=== PATIENT | female | born 1945 | race Caucasian/White ===

== ENCOUNTER 2019-09-23 17:22 | Inpatient (IN) ==
[2019-09-23] MEDS ORDERED: NS 500 ML IV ONE ×2 (18:10→20:51)
[2019-09-23] MEDS ORDERED: ASPIRIN PO ONE (18:19)
[2019-09-23] MEDS ORDERED: NS 1,000 ML IV ONE ×2 (18:19→20:39)
--- NOTE | 2019-09-23 18:21 | Diag Imaging Result Doc PS360 ---
EXAM: CT HEAD W/O CONTRAST INDICATION: stroke like sx TECHNIQUE: This exam was performed using automated exposure control, adjustment of mA or kV according to patient size, and/or use of iterative reconstruction technique. COMPARISON: None. FINDINGS: There is right frontal lobe encephalomalacia indicating an old infarct. There is mild brain atrophy. There is no definite acute infarct given the limited sensitivity of CT versus MRI. There is no discrete intracranial mass, mass effect, or intracranial hemorrhage. The surrounding soft tissues and bony structures are essentially unremarkable. IMPRESSION: Chronic appearing changes as described. No definite acute intracranial pathology by CT. Electronically signed by Stephan Carias 09/23/2019 6:18 PM
--- NOTE | 2019-09-23 18:50 | EKG Report ---
Test Performed on : 09/23/2019 6:08:11 PM Test Reason : CVA Blood Pressure : / mmHG Vent. Rate : 141 BPM Atrial Rate : 144 BPM P-R Int : 000 ms QRS Dur : 094 ms QT Int : 264 ms P-R-T Axes : 000 061 201 degrees QTc Int : 404 ms Atrial fibrillation. with rapid ventricular response. Nonspecific ST and T wave abnormality Abnormal ECG No previous ECGs available Unconfirmed Result
--- NOTE | 2019-09-23 18:51 | Diag Imaging Result Doc PS360 ---
EXAM: CHEST-PORTABLE INDICATION: CVA TECHNIQUE: One view COMPARISON: None. FINDINGS: The lungs are grossly clear. There is no discrete pleural fluid collection or pneumothorax. The cardiomediastinal silhouette and central vasculature are grossly unremarkable. IMPRESSION: No evidence of acute pathology by plain radiograph. Electronically signed by Stephan Carias 09/23/2019 6:48 PM
[2019-09-23 18:56] LABS: BASO# 0.01 X1000 (0.0-0.2); BASO% 0.1 % (0.0-0.8); EOS# 0.16 X1000 (0.0-0.7); HEMATOCRIT 29.6 % (37.0-47.0); HEMOGLOBIN 8.1 g/dL (12.0-16.0); IMM GRAN# 0.02 X1000 (0.0-0.04); IMM GRAN% 0.2 % (0.0-0.5); LYMPH# 1.88 X1000 (1.2-3.4); LYMPH% 23.1 % (20.5-51.1); MCH 20.9 PG (27-31); MCHC 27.4 g/dL (33-37); MCV 76.5 FL (81-99); MONO# 0.39 X1000 (0.11-0.59); MONO% 4.8 % (1.7-9.3); MPV 10.5 FL (7.4-10.4); NEUT# 5.67 X1000 (1.4-6.5); NEUT% 69.8 % (42.2-75.2); PLT 370 X1000 (130-400); RBC 3.87 XMIL (4.2-5.4); RDW 17.7 % (11.5-14.5); WBC 8.13 X1000 (4.8-10.8)
--- NOTE | 2019-09-23 18:58 | PROVIDER DOCUMENTATION ---
This chart was entered by Waldo Sales Scribe, acting as scribe for Merlin Calloway MD. HPI-Neurological Disorder - General Source: patient, family - History of Present Illness-Neuro Severity: reports: mild Onset/Duration: reports: 1-3 hours ago Timing: reports: still present Context: reports: impaired speech Any recent trauma/injury?: reports: none Character of Deficits: reports: impaired speech New weakness or altered sensation location:: reports: none Cognitive Baseline: alert, oriented x3 Gait Baseline: walks without assistance Associated Symptoms: reports: slurred speech Similar Symptoms Previously?: No Recently seen or treated by another doctor?: Yes <Merlin Calloway - Last Filed: 09/23/19 18:55> <Miladys Carrasco - Last Filed: 09/23/19 20:23> - General Chief Complaint: Stroke-Like Symptoms Stated Complaint: CONFUSION Time Seen by Provider: 09/23/19 18:08 Allergies/Adverse Reactions: Patient Allergies Allergy/AdvReac Type Severity Reaction Status Date / Time No Known Allergies Allergy Verified 09/23/19 19:16 Home Medications: Home Medication List Medication Instructions Recorded Confirmed Last Taken Type Carvedilol [Coreg] 6.25 mg PO BID 09/23/19 09/23/19 Unknown History Cholecalciferol (Vit D3) [Vitamin 5,000 unit PO DAILY 09/23/19 09/23/19 Unknown History D3] Clopidogrel [Plavix] 75 mg PO DAILY 09/23/19 09/23/19 Unknown History LISINOpril [Prinivil] 5 mg PO DAILY 09/23/19 09/23/19 Unknown History Omeprazole 20 mg PO DAILY 09/23/19 09/23/19 Unknown History Oxybutynin [Ditropan] 5 mg PO BID 09/23/19 09/23/19 Unknown History Paroxetine [Paxil] 20 mg PO DAILY 09/23/19 09/23/19 Unknown History - History of Present Illness-Neuro Nature of Presenting Problem: Pt is a 74 yof who presents to the ED with stroke-like symptoms. Pt reports she saw her PCP this afternoon and states she began noticing she was having difficulty speaking after her appointment. Pt reports she first noticed her d ifficulty speaking at approximately 1500. Pt's son reports the pt called him at approximately 1600 and states the pt was having difficulty speaking on the phone. Pt reports a hx of a stroke in 2000. Pt reports a hx of Atrial fibrillation and HTN. (Merlin Calloway) Review of Systems - Adult - REVIEW OF SYSTEMS - ADULT Constitutional: reports: see HPI Eyes: reports: no symptoms reported Ears, Nose, Mouth & Throat: reports: no symptoms reported Cardiovascular: reports: see HPI Respiratory: reports: no symptoms reported Gastrointestinal: reports: no symptoms reported Genitourinary: reports: no symptoms reported Musculoskeletal: reports: no symptoms reported Integumentary: reports: no symptoms reported Neurological: reports: see HPI, slurred speech Psychiatric: reports: no symptoms reported Endocrine: reports: no symptoms reported Hematologic/Lymphatic: reports: no symptoms reported Allergic/Immunologic: reports: no symptoms reported All Other Systems: Reviewed and Negative <Merlin Calloway - Last Filed: 09/23/19 18:55> Past History - Adult - PAST MEDICAL HISTORY-ADULT Review of Records: reports: Old Records Reviewed, Nursing Assessment Review, Medications Reviewed, Social history reviewed & non-contributory. Major Childhood Illnesses: reports: denies history Cardiovascular: reports: denies history Respiratory: reports: denies history Gastrointestinal: reports: denies history Obstetrical/Gynecological: reports: denies history Genitourinary: reports: denies history Musculoskeletal: reports: denies history Neurological: reports: CVA Endocrine/Immune: reports: denies history Other Conditions: reports: denies history - PRIOR SURGERIES/PROCEDURES Surgical/Procedure History: reports: BTL - IMMUNIZATION STATUS Childhood Immunizations: See Nurse Assessment Flu Vaccine: See Nurse Assessment - FAMILY HISTORY Family History: reviewed, not pertinent <Merlin Calloway - Last Filed: 09/23/19 18:55> Physical Exam- Neurological - Physical Exam-Neuro Initial Vital Signs Reviewed: Yes General Appearance: alert, mild distress Eye Exam: bilateral eye: normal inspection, PERRL HENMT: normocephalic/atraumatic, moist mucous membranes Head Injury: no evidence of injury Neck: non-tender, full range of motion Respiratory: chest non-tender, lungs clear, normal breath sounds, no pleuratic chest pain, no respiratory distress Cardiovascular: tachycardia, irregularly irregular Abdominal Exam: non tender, soft Extremity: normal range of motion, non-tender major gifts director Exam: normal hearing, PERRL, abnormal speech Coordination/Gait: normal finger to nose Motor/Sensory: no motor deficit, no sensory deficit Neurologic: grossly normal, no motor/sensory deficits Integumentary: normal color, warm/dry Psych/Mental Status: normal mood/affect, normal thought content, normal thought process, oriented x 3 <Merlin Calloway - Last Filed: 09/23/19 18:55> Progress - PLAN OF CARE/RESULTS Result Diagrams: 09/23/19 18:20 - REASSESSMENT Reassessment #1 Time Reassessed: 18:55 Status: improving (A FIB RATE DOWN TO 121/MIN, FLUIDS GETTING STARTED. ct BRAIN W/O ACUTE CHANGES, OLD LARGE RIGHT TEMPORAL-CEREBRAL DEFECT, NO BLEED. WORD SELECTION MAYBE SL BETTER, NO SLURRED WORDS.) - EKG 1 Time of EKG reading by physician:: 18:10 EKG Read and Signed by:: Merlin Calloway EKG Interpretation (*Must complete 3 of following elements*): Abnormal (Atrial fibrillation with rapid ventricular repsonse; Nonspecific ST and T wave abnorma lity) Rate: 141 Rhythm: Atrial fibrillation with rapid ventricular repsonse [place]: normal QRS: normal MT Interval: normal ST Wave: non-specific ST changes - CT/MRI 1 CT Study: Head Impression: See EMR Report ( EXAM: CT HEAD W/O CONTRAST INDICATION: stroke like sx TECHNIQUE: This exam was performed using automated exposure control, adjustment of mA or kV according to patient size, and/or use of iterative reconstruction technique. COMPARISON: None. FINDINGS: There is right frontal lobe encephalomalacia indicating an old infarct. There is mild brain atrophy. There is no definite acute infarct given the limited sensitivity of CT versus MRI. There is no discrete intracranial mass, mass effect, or intracranial hemorrhage. The surrounding soft tissues and bony structures are essentially unremarkable. IMPRESSION: Chronic appearing changes as described. No definite acute intracranial pathology by CT. Electronically signed by Stephan Carias 09/23/2019 6:18 PM 09/23/191817 Interpreting Physician: Stephan Carias MD Dictated Date/Time: 09/23/191816 cc: Merlin Calloway MD; Gallo Stauffer MD) - CONSULTS/PCP/HOSPITALIST Notification #1 *Consult/PCP/Hospitalist*: Dr. Stauffer - PCP Time Discussed: 18:25 Reason/Comments: Made aware of pt and states the pt needs anticoagulation. Consult Disposition: other - CHANGE OF SHIFT REPORT (ED Provider) 1 Report Given and Care Transferred to:: DR HALL Time of Transfer: 19:00 <Merlin Calloway - Last Filed: 09/23/19 18:55> - PLAN OF CARE/RESULTS Result Diagrams: 09/23/19 18:20 09/23/19 18:20 - CONSULTS/PCP/HOSPITALIST Notification #2 Consult: Florencio Moreno NP for hospitalist Time Discussed: 20:16 Consult Disposition: Admit, other (accepted for admission to Dr Brown) <Miladys Carrasco - Last Filed: 09/23/19 20:23> - PLAN OF CARE/RESULTS Progress/Plan/Lab Results: Vital Signs - 8 hr 09/23/19 17:50 Temperature 98.9 F Pulse Rate 138 H Respiratory Rate 17 Blood Pressure 110/69 O2 Sat by Pulse Oximetry 97 Laboratory Results - last 24 hr 09/23/19 09/23/19 09/23/19 18:20 18:20 18:20 WBC 8.13 RBC 3.87 L Hgb 8.1 L Hct 29.6 L MCV 76.5 L MCH 20.9 L MCHC 27.4 L RDW Std Deviation 17.7 H Plt Count 370 MPV 10.5 H Immature Gran % (Auto) 0.2 Neut % (Auto) 69.8 Lymph % (Auto) 23.1 [place] % (Auto) 4.8 Eos % (Auto) 2.0 Baso % (Auto) 0.1 Immature Gran # (Auto) 0.02 Neut # (Auto) 5.67 Lymph # (Auto) 1.88 [place] # (Auto) 0.39 Eos # (Auto) 0.16 Baso # (Auto) 0.01 PT 14.2 INR 1.09 PTT (Actin FS) 26.7 Sodium 144 Potassium 3.6 Chloride 101 Carbon Dioxide 30 Anion Gap 13 BUN 16 Creatinine 1.0 H Estimated GFR/1.73 m2 54 BUN/Creatinine Ratio 16 Glucose 147 H Calculated Osmolality 291 Calcium 9.1 Magnesium 1.8 Iron 17 L Total Bilirubin 0.53 AST 14 ALT 11 Alkaline Phosphatase 106 H Troponin T Total Protein 6.6 Albumin 4.0 Globulin 2.6 Albumin/Globulin Ratio 1.5 Plasma Lactate 09/23/19 09/23/19 18:20 19:00 WBC RBC Hgb Hct MCV MCH MCHC RDW Std Deviation Plt Count MPV Immature Gran % (Auto) Neut % (Auto) Lymph % (Auto) [place] % (Auto) Eos % (Auto) Baso % (Auto) Immature Gran # (Auto) Neut # (Auto) Lymph # (Auto) [place] # (Auto) Eos # (Auto) Baso # (Auto) PT INR PTT (Actin FS) Sodium Potassium Chloride Carbon Dioxide Anion Gap BUN Creatinine Estimated GFR/1.73 m2 BUN/Creatinine Ratio Glucose Calculated Osmolality Calcium Magnesium Iron Total Bilirubin AST ALT Alkaline Phosphatase Troponin T 0.068 Total Protein Albumin Globulin Albumin/Globulin Ratio Plasma Lactate 1.6 Orders Category Date Time Status Cardiac Monitoring DIRECTED Care 09/23/19 18:10 Active Saline Loc NOW Care 09/23/19 18:10 Active CHEST-PORTABLE [RAD] Stat Exams 09/23/19 18:[address] HEAD W/O CONTRAST [CT] Stat Exams 09/23/19 17:33 Completed CBC WITH ELECTRONIC DIFF [HEME] Stat Lab 09/23/19 18:20 Completed COMPREHENSIVE METABOLIC PANEL [CHEM] Stat Lab 09/23/19 18:20 Completed LACTATE, PLASMA [CHEM] Stat Lab 09/23/19 19:00 Completed MAGNESIUM [CHEM] Stat Lab 09/23/19 18:20 Completed PROTIME WITH INR [COAG] Stat Lab 09/23/19 18:20 Completed PTT [COAG] Stat Lab 09/23/19 18:20 Completed TOTAL IRON [CHEM] Stat Lab 09/23/19 18:20 Completed TROPONIN T Stat Lab 09/23/19 18:20 Completed URINALYSIS W/POSS RFLX CULT [URINALYSIS] Stat Lab 09/23/19 18:12 Uncollected 0.9% Sodium Chloride Inj [Ns] 1,000 ml Med 09/23/19 18:19 Discontinued IV 999 mls/hr 0.9% Sodium Chloride Inj [Ns] 500 ml Med 09/23/19 18:10 Discontinued IV 999 mls/hr Aspirin Med 09/23/19 18:19 Discontinued 325 mg PO NOW ONE Carvedilol [Coreg] Med 09/23/19 21:00 Active 6.25 mg PO BID Cholecalciferol (Vit D3) [Vitamin D] Med 09/24/19 09:00 Active 5,000 unit PO DAILY Clopidogrel [Plavix] Med 09/24/19 09:00 Active 75 mg PO DAILY LISINOpril [Prinivil] Med 09/24/19 09:00 Active 5 mg PO DAILY Omeprazole [Prilosec] Med 09/24/19 09:00 Active 20 mg PO DAILY Oxybutynin [Ditropan] Med 09/23/19 21:00 Active 5 mg PO BID Paroxetine [Paxil] Med 09/24/19 09:00 Active 20 mg PO DAILY EKG [EKG] Stat Ther 09/23/19 18:10 Draft Patient signed out to me pending labs. Will require admission for stroke workup for expressive aphasia. Spoke to Kennedi Moreno NP for hospitalist who accepted patient for admission. Further orders to be placed by their team. (Miladys Carrasco) Departure - Departure Date of Disposition Decision: 09/23/19 Certified Medical Emergency: Emergent - Critical Care Note This patient required my direct & personal management of CC.: No <Merlin Calloway - Last Filed: 09/23/19 18:55> - Departure Time of Disposition Decision: 20:16 Certified Medical Emergency: Emergent - Critical Care Note This patient required my direct & personal management of CC.: No <Miladys Carrasco - Last Filed: 09/23/19 20:23> - Departure DIAGNOSIS: Expressive aphasia, Stroke-like symptom Disposition: ADMITTED INPATIENT 09 Condition: Stable Additional Instructions: ED Follow Up Instructions: You have been treated by a care provider in the Emergency Department. These instructions are being provided to you so you can have an understanding of how to care for yourself upon discharge. Upon discharge from the Emergency Department, you are responsible for making arrangements for follow-up care by a physician of your choice. Take all prescribed medications as directed. Return to the Emergency Department immediately for any new or worsening symptoms. You may call the Physician Referral phone number at [phone] to obtain a list of Physicians who are taking new patients. Referrals and Follow-Ups: Gallo Stauffer MD [Primary Care Provider] - Attestation - Physician/ CELIA Attestation Patient care was provided by Advanced Practice Provider:: No The physician spent face to face time with patient:: Yes Advanced Practice Provider documentation review:: Supervising physician onsite and consulted in the evaluation and care of this patient. The physician did have a face to face encounter with the patient. <Merlin Calloway. - Last Filed: 09/23/19 18:55> This chart was documented by the indicated scribe, (Waldo Sales, Scribe) and accurately reflects the services I performed and decisions made by me, Merlin Calloway MD, as attested by the provider's signature.
[2019-09-23 19:01] LABS: INR 1.09; PROTIME 14.2 Seconds (11.0-16.0)
[2019-09-23 19:02] LABS: PTT 26.7 Seconds (22.3-41.8)
[2019-09-23 19:06] LABS: ALB/GLOB RATIO 1.5; CALCIUM 9.1 mg/dL (8.8-10.2); MAGNESIUM 1.8 mg/dL (1.5-2.7); POTASSIUM 3.6 mmol/L (3.5-5.1); TOTAL BILIRUBIN 0.53 mg/dL (0.20-1.00); TOTAL PROTEIN 6.6 g/dL (6.3-8.3)
[2019-09-23] MEDS ORDERED: NICODERM PATCH TD ONE (20:40)
[2019-09-23] MEDS ORDERED: ATIVAN IV ONE (20:50)
[2019-09-23] MEDS ORDERED: LOPRESSOR IV ONE (20:51)
[2019-09-23] MEDS ORDERED: LANOXIN IV ONE (20:51)
[2019-09-23] MEDS ORDERED: COREG PO SCH (21:00)
[2019-09-23] MEDS ORDERED: KLOR-CON PO ONE (21:11)
[2019-09-23 21:14] LABS: URINE SOURCE CLEAN CATCH
[2019-09-23 21:19] LABS: BILIRUBIN URINE NEGATIVE (NEGATIVE); BLOOD URINE TRACE (NEGATIVE); COLOR YELLOW; GLUCOSE URINE NEGATIVE (NEGATIVE); KETONE URINE NEGATIVE (NEGATIVE); LEUKOCYTES URINE SMALL (NEGATIVE); NITRITE URINE NEGATIVE (NEGATIVE); PROTEIN URINE 30 mg/dL (NEGATIVE); SP GRAVITY URINE 1.022; TURBIDITY URINE CLEAR (CLEAR); UROBILINOGEN URINE NORMAL (NORMAL)
[2019-09-23 21:23] LABS: UR EPITHELIAL CELLS <10 /HPF (<10); URINE BACTERIA NEGATIVE /HPF; URINE RBC <10 /HPF (<10)
--- NOTE | 2019-09-23 21:59 | HISTORY AND PHYSICAL ---
CHIEF COMPLAINT: Confusion. HISTORY OF PRESENT ILLNESS: Ms. Garza is a 74-year-old female who presented to the emergency room with difficulty getting her words out. She saw her PCP, Gallo Stauffer today, for a lower extremity ultrasound. I am unsure if this was to rule out DVT or to evaluate flow. We will order reports from his office. At any rate, around 1500 she began having difficulty speaking, not necessarily slurring her speech but more of an expressive aphasia. The patient's son reports that the patient called him at around 1600, was having difficulty completing sentences on the phone. She has a history of a stroke in 2000 as well as atrial fibrillation and hypertension. She does take Plavix daily. She was given a 325 aspirin on arrival. Will continue the Plavix but if the patient is found to have a new CVA it may be beneficial to add a low-dose aspirin daily. At any rate, she will be admitted for further evaluation and treatment. PAST MEDICAL HISTORY: See HPI. PAST SURGICAL HISTORY: Tonsillectomy, BTL, and right wrist surgery. SOCIAL HISTORY: Smokes a pack of cigarettes per day. No alcohol. No illicit drugs. FAMILY HISTORY: Mother had congestive heart failure. ALLERGIES: NO KNOWN DRUG ALLERGIES. HOME MEDICATIONS: Coreg 6.25 mg p.o. b.i.d., vitamin D3 5000 units p.o. daily, Plavix 75 mg p.o. daily, lisinopril 5 mg p.o. daily, omeprazole 20 mg p.o. daily, Ditropan 5 mg p.o. b.i.d., and Paxil 20 mg p.o. daily. REVIEW OF SYSTEMS: A 14-point review of systems was conducted with the patient and pertinent positives are listed above in the HPI. She denies visual changes, headache, chest pain, or weakness. All other systems reviewed and found to be negative. PHYSICAL EXAMINATION: VITAL SIGNS: Temperature 98.3, pulse 115 to 128, atrial fibrillation, respirations 14, blood pressure 115/72, oxygen saturation 97% on room air. GENERAL: A pleasant 74-year-old female lying on the ER stretcher. She does have mild expressive aphasia, however she is alert and oriented x3. She is in no acute distress. HEENT: Head is atraumatic and normocephalic. Pupils are equal, round and reactive to light. Extraocular eye movements intact. Sclerae anicteric. Conjunctivae is pink. Oral mucosa is mildly dry. NECK: Supple. No JVD. No thyromegaly. Trachea is midline. No cervical lymphadenopathy. CARDIAC: S1 and S2 appreciated. She is irregularly irregular and tachycardic. Atrial fibrillation noted on the monitor. No murmurs, gallops or rubs. LUNGS: Clear to auscultation bilaterally. No rhonchi, wheezes or rales. Symmetric rise and fall with respirations. ABDOMEN: Soft, nondistended and nontender. Bowel sounds present in all four quadrants, normoactive. No pulsatile masses. No organomegaly. EXTREMITIES: No cyanosis, clubbing or edema. There are 2+ pedal pulses bilaterally. GENITOURINARY: No bladder distention. The patient voids. Otherwise, deferred. NEUROLOGICAL: Alert and oriented x3. Cranial nerves II-XII appear to be grossly intact. She is having some expressive aphasia. No facial asymmetry. Otherwise, no other neurological deficits noted. DIAGNOSTIC DATA: EKG shows atrial fibrillation with a rapid ventricular rate, 141. CT of the head shows chronic appearing changes; mild brain atrophy; and a right frontal lobe encephalomalacia, indicating an old infarct. Chest x-ray grossly normal. No effusions, infiltrates, or edema. LABORATORY DATA: WBC is 8.13, hemoglobin 8.1, hematocrit 29.6, platelet count 370,000. Sodium is 144, potassium 3.6, chloride 101, carbon dioxide 30, BUN is 16, creatinine 1, glucose 147. ASSESSMENT AND PLAN: 1. Transient ischemic attack versus cerebrovascular accident. CT scan was normal other than atrophy and old infarct. Will order MRI tomorrow morning. At this time, the patient is hesitant to have MRI. She has claustrophobia. I have ordered a predose of Ativan tomorrow to try to help the patient make it through the MRI. Will also consult Neurology. Neuro checks. The patient's blood pressure is a little on the low side right now. Will give fluids, as she does look mildly volume depleted and will continue normal saline overnight. Will allow for permissive hypertension. Will hold her lisinopril daily at this time. The patient does not appear to be on a statin. Will start atorvastatin 40 mg orally daily and check a direct lipid profile. 2. Acute kidney injury. As noted, will give patient fluids. Recheck laboratory data tomorrow. 3. Microcytic anemia. Will check iron indices. 4. Atrial fibrillation with a rapid ventricular rate. Will stop patient's Coreg and give metoprolol every 12 hours. This will start tonight at 10:00 p.m. Will also give 2 mg intravenously as well as 250 mcg of digoxin. Will continue the patient's Plavix. She received a 325 aspirin. She may benefit from anticoagulation. She falls in a moderate to high risk category related to her CHADsVASc2 score. As noted at this time, will continue Plavix 75 mg orally daily and add an 81 mg aspirin daily. Will defer to the primary team and Neurology. 5. Will place the patient on PVC for closer monitoring and evaluation. Neuro checks every two hours. Will start the patient on a proton pump inhibitor related to increased risk of bleeding with Plavix and aspirin. Smoking cessation was gone over with the patient. She denies wanting to quit at this time. Will place a NicoDerm patch on the patient's medication profile. Will also add Lovenox for venous thrombosis prophylaxis. Along with the MRI we will also do a carotid ultrasound and echocardiogram. Further recommendations per patient's clinic course. Dictated by RIDDHI Kidd for Silas Brown MD I have performed a face to face diagnostic evaluation. Labs/ xrays- reviewed. Exam- Chest- clear, CV- regular, Abd- soft., Neuor- speech intact. A/P- TIA r/o CVA- Admit, MRI of brain, Neurology consult. Dr. Brown cc: RIDDHI Kidd MD Gregory S. Cheatham, MD MTDD
[2019-09-23] MEDS ORDERED: ZOFRAN IV PRN (22:45)
[2019-09-23 23:15] LABS: HEMOGLOBIN A1C 6.5 % (4.8-6.0)
[2019-09-23] MEDS: LOVENOX SUBQ SCH (23:26)
[2019-09-23] MEDS: LIPITOR PO SCH (23:27)
[2019-09-23] MEDS: DITROPAN PO SCH (23:27)
[2019-09-23] MEDS: LOPRESSOR PO SCH (23:27)
[2019-09-23] MEDS: ASPIRIN PO SCH (23:28)
[2019-09-24] MEDS ORDERED: ATIVAN IV SCH
[2019-09-24 06:12] LABS: CALCIUM 8.8 mg/dL (8.8-10.2); POTASSIUM 3.6 mmol/L (3.5-5.1)
[2019-09-24 06:44] LABS: FERRITIN 17 ng/mL (13-150)
[2019-09-24] MEDS: PRILOSEC PO SCH (08:26)
[2019-09-24] MEDS: VITAMIN D PO SCH (08:26)
[2019-09-24] MEDS: PLAVIX PO SCH (08:26)
[2019-09-24] MEDS: NICODERM PATCH TD SCH (08:26)
[2019-09-24] MEDS: DITROPAN PO SCH ×2 (08:26→20:00)
[2019-09-24] MEDS: LOPRESSOR PO SCH ×2 (08:26→20:00)
[2019-09-24] MEDS ORDERED: PAXIL PO SCH (09:00)
[2019-09-24] MEDS ORDERED: PRINIVIL PO SCH (09:00)
[2019-09-24] MEDS: VENOFER 200 MG in NS 100 ML IV SCH (10:33)
[2019-09-24] MEDS: CYANOCOBALAMIN IM SCH (10:33)
--- NOTE | 2019-09-24 12:47 | CONSULTATION ---
DATE OF CONSULTATION: 09/24/2019 Ms. Garza is 74 years old and she had sudden onset of language difficulty yesterday. During the day yesterday, she noted sharp throbbing right frontal headache. Later, she noticed she could not make herself understood with speech. She had trouble finding her words. She did not have trouble understanding what was said to her. She did not notice weakness in the limbs, numbness, vision disturbance, facial asymmetry, slurred speech, gait difficulty, neck stiffness. Symptoms persisted and she presented to the emergency room. She believes that she got better through the night and is much improved but not back to baseline this morning. She has a history of stroke in 2000 causing language disturbance. She reports that was a much more dense deficit and resolved slowly over several months. She believes that she did eventually recover to normal. She does not recall having focal weakness or numbness with the 2000 event. Risk factors include cigarette smoking, hypertension, atrial fibrillation, dyslipidemia. She reports she does not have diabetes mellitus, but blood sugars are elevated here. She denies ethanol abuse. She reports taking her medicines regularly as prescribed without missing doses and without recent medication changes. She has made an informed decision not to take anticoagulant medicine. She has been taking clopidogrel 75 mg daily and tolerating that. Other medicines include atorvastatin, carvedilol, lisinopril. She reports blood pressures at home usually 130s/70s, occasionally lower, seldom higher. Blood pressures here have ranged 98-140 systolic. She is aware of a rapid heartbeat. Vital sign record here shows heart rate 110s-140. She has been afebrile. Lab shows moderate anemia, MCV 76.5, normal PT and INR, normal PTT, blood sugars 140s-150s, A1c 6.5%. Total cholesterol was 70. B12 is 176. Imaging completed and reported includes only noncontrast CT of the head showing old-appearing right frontal encephalomalacia. MRI is scheduled. Echocardiogram is scheduled. On exam, Ms. Garza is awake, alert, attentive, appropriate. Speech is not significantly dysarthric. She did well on bedside testing of calculation. She did well with right/left distinction. She had some trouble with digit distinction. She named objects but had trouble naming parts of objects. She handled common nouns and proper nouns equally well. She followed written and spoke commands equally well. I did not test handwriting. Memory is good. Head and neck are unremarkable. Visual toro are full tested by confrontational finger counting. Extraocular movements are full. Facial motility is good bilaterally. The left nasolabial fold is slightly less prominent than the right. Gag is intact. Tongue is midline. Palate is midline. Shoulder shrug is good. Strength is normal in the arms and legs. Tone is symmetric in the limbs. She did well on [id number] testing bilaterally. She reports good pinprick appreciation over the hands and feet. Proprioception is good at the second finger MCP joint bilaterally. Reflexes are trace at the ankles, 1+ at the knees, 1+ at the wrists symmetrically. Plantar response is silent bilaterally. I did not test her gait. IMPRESSION: Isolated incomplete dysphasia. She is left-handed and presumed to have a dominant right hemisphere. I suspect she has had another ischemic event. Negative CT is reassuring. In light of her previous dominant right hemisphere infarction, we might need to consider seizure, with prior infarct as focus, as an explanation for recent episode but she is certain she has not had earlier episodes and first seizure would be unlikely to occur 18 years after stroke event. This episode was associated with headache but migraine seems less likely explanation. Further plans will depend on her MRI and echocardiogram reports. Her clinical course to this point is encouraging. I suggested that she quit smoking cigarettes, be attentive to other risk factors, and take her medicines as directed. I suggested she keep an open mind regarding anticoagulation. She told me she is certain she will not accept any recommendation for anticoagulation. We might be able to persuade her differently if echocardiogram shows evidence of cardiac source of embolus. Thanks for asking neurology to see Ms. Garza. cc: MD BAILEY Brody III
--- NOTE | 2019-09-24 13:22 | Diag Imaging Result Doc PS360 ---
EXAM: MRI BRAIN W/WO CONTRAST 09/24/2019 HISTORY: stroke TECHNIQUE: T1 sagittal, axial and post gadolinium-enhanced axial with coronal reformation, axial T2, FLAIR, DWI and coronal gradient echo. COMMENT: There is encephalomalacia surrounding the anterior portion of the sylvian fissure on the right. This includes portions of the insula and periventricular white matter of the right frontal lobe. There is gyriform restricted diffusion in the posterior parietal temporal cortex and subcortical white matter on the right. There is no evidence of abnormal gadolinium enhancement. There is no evidence of bleed or abnormal extra-axial fluid collection. IMPRESSION: Encephalomalacia on the right which is probably due to previous infarct or other insult. New restricted diffusion in the posterior right hemisphere presumably related to acute or subacute infarction. The findings were discussed with Denise at 09/24/2019 1:19 PM. Electronically signed by Goran Mehta 09/24/2019 1:19 PM
[2019-09-24] MEDS ORDERED: NS NEB INH SCH (14:30)
--- NOTE | 2019-09-24 15:14 | PROGRESS NOTE ---
DATE: 09/24/2019 SUBJECTIVE: This morning, Ms. Garza refers to be doing a lot better. She thinks her speech is getting out more than yesterday. She denies any new neurological deficit. OBJECTIVE: Vital Signs: Blood pressure is 132/79, pulse of 103, respirations 23, temperature is 99 degrees. General: Ms. Garza is a 74-year-old female. She is in bed. No distress. HEENT: Mucosa is pink and moist. Anicteric. Acyanotic. Neck: Supple. Chest: Good air entry bilaterally. There is fine end expiratory wheezing. There is also mild prolongation of expiratory phase of respiration. Cardiovascular: Irregularly irregular. Heart rate is anywhere between 110 to 130. Abdomen: Soft, nontender. Bowel sounds present. Extremities: No pedal edema. 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 She is more conversational. Every now and then, she seems to be struggling bringing out her worse, but she does not have any deficit in terms of motor on the extremities. Sensation is also intact. CURRENT LABORATORY DATA: Chemistry is completely within normal range. Glucose is 157. The patient's percent saturation is 5, and ferritin is 17. Her B12 is also low at 176. The patient's A1c is 6.5. DIAGNOSTIC STUDIES: An MRI, which was done this morning, shows encephalomalacia on the right. There is also a new restricted diffusion in the posterior right hemisphere, presumably related to acute or subacute infarction. An echocardiogram, which was done in May of this year, showed an ejection fraction of 62%. The left atrium was enlarged with a volume index of 47. ASSESSMENT: 1. Acute onset of expressive aphasia with an MRI concerning for an acute/subacute infarction in the right posterior hemisphere. Of note, Ms. Garza is a left-sided dominant person. 2. Atrial fibrillation with rapid ventricular response. The patient has been on oral medications. The heart rate seems to get up and down, but I do not think it is completely controlled, so we are going to add diltiazem to the Lopressor for better heart control. Ms. Garza is also Dr. Romero Bullock's patient, so we will consult Cardiology to evaluate and assist with her atrial fibrillation management. Ms. Garza has a CHADS-VASc score of at least 4, that has 1 for female, 1 for age of 74, and 2 for stroke, which will make her eligible for anticoagulation. Yesterday, she was very adamant and against anticoagulation. This afternoon, after reviewing the image and all her risk factors calculated with her, she is more open to this. We will wait for Neurology evaluation, and determine when will be a suitable time for anticoagulation start. Ms. Garza was on Plavix, and on the Plavix, she still developed a stroke, so I think she definitely needs an anticoagulant. 3. Severe iron deficiency with a ferritin level of 7, percent saturation of 5. The patient's fecal occult blood test is negative. However, because she might be going on a blood thinner, I think it is reasonable to look inside her gastrointestinal tract to rule out any etiology for any chronic blood loss that has not been evident before we commit her to long anticoagulation. We have consulted Dr. Horowitz to evaluate her. 4. B12 deficiency. Will start replacing this. 5. Newly-diagnosed diabetes with an A1c of 6.5. The patient also has been having fasting more than 121 mg/dL. I think she would be okay with at least diet and maybe metformin once she is ready for discharge. Please refer to the details of the progress note as well done by the medical student in the chart. cc: MD BAILEY Rainey
[2019-09-24] MEDS: CARDIZEM PO SCH ×2 (15:26→19:59)
[2019-09-24] MEDS: XOPENEX NEB INH PRN ×2 (15:59→20:50)
--- NOTE | 2019-09-24 17:21 | CARDIOLOGY CONSULTATION ---
DATE: 09/24/2019 CONSULTATION REQUESTED BY: Dr. Zuniga, Hospitalist Service. REASON FOR CONSULTATION: Patient with atrial fibrillation rapid response. CHIEF COMPLAINT: Swelling of the legs and aphasia. HISTORY: Ms. Garza is a pleasant 74-year-old female who is a patient of Dr. Romero Bullock also Dr. Nilay Stauffer. She was in her usual state of health. She had developed some swelling of the legs and yesterday she went to her doctor's office to have a venous ultrasound. After she returned to her home around noontime, she developed sudden onset of aphasia. The patient then went on to visit the ER at about [address] They did a CT of the head that shows chronic appearing changes, right frontal lobe encephalomalacia indicating an old infarct. They did a chest x-ray that shows no acute pathology. Laboratory work including troponin 0.068. They did not check a proBNP level and they checked a hemoglobin that was very low, 8.1. Iron saturation only 5%. They admitted the patient for further evaluation. She has been seen by Dr. Irvin from Neurology. He suggests that she quit smoking cigarettes and keep an open mind regarding the use of anticoagulants. The patient has been refusing to take anticoagulants before and her aphasia has improved to the point that he that she can actually communicate better. She is not having any chest pains. She denies having significant dyspnea. No palpitations or syncope. She has been having some swelling of the legs lately. PAST HISTORY: Positive for previous stroke in 2000. 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 The patient has had a heart catheterization in 2012 that showed normal coronary arteries with a bridge in the mid LAD. She has been aware of having atrial fibrillation for a while. She has had episodes of gastrointestinal bleeding when she was living in [facility] and they did endoscopy that showed stomach ulcers. She has had anemia before. She has had blood transfusions. SURGICAL HISTORY: Includes cataract extraction, tonsillectomy, wrist surgery. SOCIAL HISTORY: She has been and once and then her 2nd in 2002. She has 3 grownup children, 1 of them lives in [place], 1 in [place] and 1 lives in [place]. She admits to smoking cigarettes. The patient is originally from [place], [place]. Her visit with Dr. Bullock on 05/15/2019 basically included getting 2D echocardiogram for evaluation of heart murmur. The echocardiogram at that time showed mild to moderate aortic regurgitation. Otherwise, her LV function was normal. The echo report is dated 06/07/2019. She had mild to moderate tricuspid regurgitation with a pulmonary pressure of 50 mmHg. There is History of normal coronary arteries by heart catheterization in 2013. . HOME MEDICATIONS: At the time of this admission included: Atorvastatin 20 mg at bedtime, carvedilol 6.25 twice a day, vitamin D3 5000 units daily, clopidogrel 75 mg daily, lisinopril 5 mg daily, omeprazole 20 mg daily. Ditropan 5 mg twice. paroxetine 20 mg daily. ALLERGIES: She is not allergic to anything. FAMILY HISTORY: She does not have any significant family history of heart disease. REVIEW OF SYSTEMS: Basically she has been quite functional until the onset of the stroke. No other positives. PHYSICAL EXAMINATION: Blood pressure 132/79, temperature 99 degrees, pulse 106, respirations 23. General: Awake, alert, oriented, in no distress. HEENT: Unremarkable. No jugular venous distention. No cervical bruits. Chest: Clear to auscultation percussion. Heart: Sounds irregularly irregular. Abdomen: Nontender. Extremities: Showed trace edema bilateral. Good pulses. Neurologic: Nonfocal. Moves 4 extremities. IMPRESSION: 1. Patient who seems to have chronic swelling of her legs, diastolic heart failure probably compounded by the fact that she has anemia. 2. Acute stroke, aphasia, resolving partially on top of an old stroke involving the right frontal temporal area of the brain. 3. Permanent atrial fibrillation. 4. Severe iron deficiency anemia. 5. Tobacco user. RECOMMENDATION: 1. At this time. She is strongly advised to quit smoking. 2. We need to perform a gastroenterology evaluation to figure out why she has iron deficiency. 3. Once her iron levels have been replenished and her hemoglobin is reasonable, then the patient should be referred to chain hooker for consideration of a Watchman device to minimize risk of stroke. At this point in time, given her severe anemia, I do not recommend any anticoagulants for fear that she could bleed profusely. DISPOSITION: At this time, we will let the primary service handle the acute situation and please refer the patient back to the office upon discharge. cc: Jarad Mejias MD MTDD
[2019-09-24] MEDS ORDERED: MYLICON PO PRN (18:11)
[2019-09-24] MEDS: ASPIRIN PO SCH (20:00)
[2019-09-24] MEDS: LOVENOX SUBQ SCH (20:00)
[2019-09-24] MEDS: LIPITOR PO SCH (20:00)
[2019-09-24] MEDS ORDERED: SOLU-MEDROL IV ONE (21:37)
[2019-09-24] MEDS ORDERED: PHENERGAN IV ONE (21:38)
[2019-09-24] MEDS ORDERED: SODIUM CHLORIDE 0.9% INJ ONE (21:38)
[2019-09-24] MEDS ORDERED: MORPHINE IV PRN (21:51)
[2019-09-24 21:53] LABS: ALLEN TEST YES; BE -5.3 mmoll (-3.0-3.0); BLOOD TYPE ARTERIAL; HCO3-(ACT) 20.7 mmoll (20.0-26.0); METHB 0.8 % (0.0-1.5); O2(CT) 10.7 mL/dL (15.0-23.0); PO2(98.6) 70 mmHg (60-100); SAMPLE BLOOD; SAO2 91.7 % (95.0-100.0); THB 8.5 g/dL (11.5-17.4)
[2019-09-24 21:54] LABS: PCO2(98.6) 75 mmHg (35-45); pH(98.6) 7.12 (7.35-7.45)
[2019-09-24 21:55] LABS: MODALITY CANNULA; O2HB 89.1 % (95.0-99.0)
[2019-09-24] MEDS ORDERED: LASIX IV ONE ×2 (21:55→23:18)
--- NOTE | 2019-09-24 22:20 | Diag Imaging Result Doc PS360 ---
CHEST-PORTABLE - 09/24/2019 INDICATION: aspiration COMPARISON: 09/23/2019 FINDINGS: Stable cardiomegaly. There is worsening diffuse pulmonary vascular congestion. There are diffuse bilateral interstitial infiltrates suggesting pulmonary edema. No large pleural effusion. IMPRESSION: Cardiomegaly and interstitial pulmonary edema. Electronically signed by Alvin Farooq 09/24/2019 10:17 PM
[2019-09-24 22:42] LABS: URINE SOURCE CATH
[2019-09-24 23:18] LABS: BILIRUBIN URINE NEGATIVE (NEGATIVE); BLOOD URINE SMALL (NEGATIVE); COLOR YELLOW; GLUCOSE URINE NEGATIVE (NEGATIVE); KETONE URINE NEGATIVE (NEGATIVE); LEUKOCYTES URINE NEGATIVE (NEGATIVE); NITRITE URINE NEGATIVE (NEGATIVE); PROTEIN URINE 300 mg/dL (NEGATIVE); TURBIDITY URINE HAZY (CLEAR); UR EPITHELIAL CELLS <10 /HPF (<10); URINE BACTERIA NEGATIVE /HPF; URINE RBC <10 /HPF (<10); URINE WBC <10 /HPF (<10); UROBILINOGEN URINE NORMAL (NORMAL)
[2019-09-24 23:32] LABS: ALLEN TEST YES; BE 2.8 mmoll (-3.0-3.0); BLOOD TYPE ARTERIAL; HCO3-(ACT) 27.1 mmoll (20.0-26.0); METHB 1.3 % (0.0-1.5); O2(CT) 11.4 mL/dL (15.0-23.0); O2HB 96.6 % (95.0-99.0); PO2(98.6) 383 mmHg (60-100); SAMPLE BLOOD; SAO2 99.9 % (95.0-100.0); THB 7.6 g/dL (11.5-17.4); pH(98.6) 7.34 (7.35-7.45)
[2019-09-24] MEDS: ZOSYN 3.375 GM in NS 50 ML IV SCH (23:35)
[2019-09-24 23:37] LABS: MODALITY BI PAP; PCO2(98.6) 54 mmHg (35-45)
[2019-09-25] MEDS: CARDIZEM 100 MG/NS 100 MG/100 ML IVPB IV SCH ×2 (00:58→16:01)
[2019-09-25] MEDS: CARDIZEM PO SCH ×4 (01:23→19:20)
[2019-09-25] MEDS ORDERED: NS 50 ML ONE (05:05)
[2019-09-25] MEDS: ZOSYN 3.375 GM in NS 50 ML IV SCH (05:12)
[2019-09-25 05:25] LABS: ALLEN TEST YES; BE 8.1 mmoll (-3.0-3.0); BLOOD TYPE ARTERIAL; HCO3-(ACT) 31.3 mmoll (20.0-26.0); O2(CT) 9.6 mL/dL (15.0-23.0); O2HB 96.8 % (95.0-99.0); PCO2(98.6) 50 mmHg (35-45); PO2(98.6) 145 mmHg (60-100); SAMPLE BLOOD; SAO2 99.3 % (95.0-100.0); THB 6.8 g/dL (11.5-17.4); pH(98.6) 7.43 (7.35-7.45)
[2019-09-25 05:26] LABS: MODALITY BI PAP
[2019-09-25 05:53] LABS: HEMATOCRIT 24.3 % (37.0-47.0); HEMOGLOBIN 7.1 g/dL (12.0-16.0); MCH 22.3 PG (27-31); MCHC 29.2 g/dL (33-37); MCV 76.4 FL (81-99); MPV 10.5 FL (7.4-10.4); RBC 3.18 XMIL (4.2-5.4); RDW 17.6 % (11.5-14.5); WBC 12.77 X1000 (4.8-10.8)
[2019-09-25 06:11] LABS: ALBUMIN 3.3 g/dL (3.5-5.0); CALCIUM 8.1 mg/dL (8.8-10.2); CREATININE 1.1 mg/dL (0.5-0.9); PHOSPHORUS 2.7 mg/dL (2.7-4.5); POTASSIUM 3.6 mmol/L (3.5-5.1)
--- NOTE | 2019-09-25 07:36 | Diag Imaging Result Doc PS360 ---
EXAM: CHEST-PORTABLE HISTORY: SOB TECHNIQUE: Single view COMPARISON: 09/24/2019 FINDINGS: Interval decrease in the pulmonary edema. Tiny left pleural effusion with basilar atelectasis and possibly and underlying infiltrate. Heart remains mildly prominent. IMPRESSION: Interval improvement with decreased pulmonary edema. Electronically signed by Baldomero Larson 09/25/2019 7:34 AM
[2019-09-25] MEDS ORDERED: NS 500 ML IV ONE (08:41)
[2019-09-25] MEDS: PLAVIX PO SCH (08:43)
[2019-09-25] MEDS: VITAMIN D PO SCH (08:43)
[2019-09-25] MEDS: LOPRESSOR PO SCH ×2 (08:44→20:05)
[2019-09-25] MEDS: PRILOSEC PO SCH (08:44)
[2019-09-25] MEDS: NICODERM PATCH TD SCH (08:48)
[2019-09-25] MEDS: CYANOCOBALAMIN IM SCH (08:49)
--- NOTE | 2019-09-25 09:25 | PROGRESS NOTE ---
DATE: 09/25/2019 SUBJECTIVE: This morning, Ms. Garza is seen in the ICU. I understand she got transferred because she became acutely hypoxemic, hypercarbic, was not breathing well, and she seems to have been accumulating fluid in her lungs. She was given Lasix, and brought down to the ICU on BiPAP. This morning, she feels a whole lot better. OBJECTIVE: Current Vital Signs: Blood pressure is 117/66, pulse of 101, respirations 16, temperature is 98.6 degrees, the patient is a saturating about 100% on the BiPAP. General: Ms. Garza is a 74-year-old, elderly, female. She is in bed. She is on the BiPAP. When you take it off, she seems to be doing well, but she desats. HEENT: Mucosa is slightly pale. Anicteric. Acyanotic. Neck: Supple. Chest: No wheezing, but there are some crackles in the posterior lung toro bilaterally. Cardiovascular: Irregularly irregular, but rate controlled on the Cardizem drip. GI: Abdomen is soft, nontender. Bowel sounds present. Extremities: No pedal edema. AEROBICS INSTRUCTOR: The patient is awake, alert. Did not show any focal deficit. IMAGING AND LABORATORY DATA: WBC is 12.7, hemoglobin is 7.1, platelet count is 281,000. ABGs: Repeat shows a pH of 7.43, pCO2 of 50, PO2 of 145. The patient did have a pH of 7.13 last night, with pCO2 up to 75. Chemistry is unremarkable. The patient's ProBNP is 2760. Troponins have all been unremarkable. A chest x-ray, which was done yesterday during the night, did show cardiomegaly, interstitial pulmonary edema. This morning, a repeat seems to suggest improvement with decreased pulmonary edema. ASSESSMENT: 1. Acute hypoxemic and acute on chronic hypercarbic respiratory failure. The patient seems to be improving on the bilevel positive airway pressure. 2. Acute pulmonary edema, most likely due to diastolic heart failure from tachyarrhythmia. 3. Atrial fibrillation with rapid ventricular response. This is controlled on the current Cardizem drip. This was started yesterday. The patient was seen by Dr. Mejias yesterday. We are pending their recommendations this morning. 4. Severe iron-deficiency anemia. Hemoglobin has actually worsened to 7.1. The patient is short of breath. She is, from a cardiac standpoint, unstable, so I think it would be reasonable to improve her hemoglobin at this point to try and improve her hemodynamics and cardiac manifestations. 5. B12 deficiency. The patient is getting replacement. 6. Newly-diagnosed diabetes mellitus. Will continue with sliding scale. 7. Left basilar infiltrate, most likely atelectasis. However, underlying infiltrate is a possibility. The patient has been presumptively started on antibiotics. Blood cultures have been done. Will be pending the report. 8. Diastolic heart failure, most likely from tachyarrhythmias (atrial fibrillation with rapid ventricular response). The heart rate is better controlled now. We are going to continue using diuretic therapy to improve the pulmonary edema. The patient will be pending evaluation from Cardiology. Of note, Ms. Garza's blood pressures are slightly on the lower end, which could be all from the medications. Will be pending Cardiology evaluation to see if they would want to make any changes to the current Cardizem because of the blood pressure. 9. Acute onset of expressive aphasia with MRI indicating acute/subacute infarction in the right posterior hemisphere. Ms. Garza seems to be expressing herself a little bit more today, and there is no motor deficit. In general, I think Ms. Garza is more critical than yesterday, but seems to have slightly improved than she was last night. She is still borderline hypotensive, and she seems more anemic than yesterday. She is getting a unit of blood transfusion today. We are going to continue with the current management for the controlling of the atrial fibrillation. If she continues to be hypotensive on the Cardizem, I think it would be reasonable to switch her to amiodarone. However, we will wait on Cardiology evaluation today. cc: Beni Zuniga MD Critical time spent 45 minutes [facility] SYSTEM[facility]
[2019-09-25] MEDS: LASIX IV SCH ×2 (09:32→16:10)
[2019-09-25] MEDS: ZYVOX 600 MG/D5W 600 MG/300 ML IVPB IV SCH ×2 (09:33→16:02)
[2019-09-25] MEDS: VENOFER 200 MG in NS 100 ML IV SCH ×2 (09:33→16:13)
[2019-09-25] MEDS ORDERED: NS 500 ML IV SCH ×2 (10:00→17:00)
[2019-09-25 11:23] LABS: INR 1.36
--- NOTE | 2019-09-25 12:13 | PROGRESS NOTE ---
DATE: 09/25/2019 SUBJECTIVE: Ms. Garza had some pulmonary changes requiring transfer to ICU. She has not had any significant neurologic change. OBJECTIVE: On exam, she is awake, alert, attentive, and appropriate. Speech is not dysarthric. On language testing, she made a mistake similar to yesterday with digit distinction, but did well with right/left distinction. She named objects and parts of objects better than yesterday but still had trouble naming smaller parts of objects. Her speech is more fluent today. Brain MRI yesterday showed the old area of encephalomalacia attributed to her 2000 stroke, and showed additional restricted diffusion more posteriorly in the right hemisphere. Her tachycardia is improved. Systolic blood pressures have ranged 90s-120s in recent hours. I do not see echocardiogram report. ASSESSMENT AND PLAN: Nothing new from Neurology standpoint. MRI documents the dominant right hemisphere infarction to account for recent language deficit. She is clinically stable and slowly improving with slightly better language function today than on exam yesterday. Decisions regarding anticoagulation will depend on her echo findings. She is still very reluctant to accept any recommendation for anticoagulation. Thanks for asking Neurology to see Ms. Garza. cc: MD BAILEY Brody III
[2019-09-25] MEDS ORDERED: NS 250 ML ONE (14:50)
--- NOTE | 2019-09-25 15:11 | GASTROENTEROLOGY CONSULTATION ---
DATE: 09/25/2019 REASON FOR CONSULTATION: Anemia, evaluate for GI source. HISTORY OF PRESENT ILLNESS: This is a 74-year-old, female who came in to the hospital on the day of admission due to difficulty with her speech. The patient has been seeing Dr. Stauffer and had an evaluation due to lower extremity edema. She had a lower extremity Doppler study to rule out DVT. After that appointment, she went home and noticed difficulty speaking. She called her son and she was brought in to the emergency room for further evaluation due to the patient's history of CVA. The patient reports having history of stroke in 2000. The patient is from [place] but had been living in [place] until she moved here in 2017. She has been following with Dr. Stauffer. 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 She does report having a colonoscopy and EGD done in the past due to a history of GI bleeding. She felt like the EGD and colonoscopy was probably about 5 years ago. Patient has denied abdominal pain. She states she has had a loss of appetite lately. No reported blood in the stool or black stools. No reported hematemesis. No reported dysphagia. The patient does report taking ibuprofen every night. She has a history of atrial fibrillation. She follows with Dr. Romero Bullock. Currently, the patient is taking Plavix. She has refused taking anticoagulation medications in the past. GI was asked to evaluate the patient for anemia and a gastrointestinal workup before deciding on placing her on possible anticoagulation. She has been seen by cardiology here in the hospital. She has also been seen by neurology. PAST MEDICAL HISTORY: 1. History of CVA in 2000. 2. Atrial fibrillation. 3. Hypertension. 4. History of GI bleeding in the past, reportedly related to stomach ulcers. PAST SURGICAL HISTORY: Cataract surgery, tonsillectomy, wrist surgery. ALLERGIES: No known drug allergies. HOME MEDICATIONS: Lipitor 20 mg every night, Coreg 6.25 mg twice a day, vitamin D3 with 5000 units daily, Plavix 75 mg daily, Prinivil 5 mg daily, omeprazole 20 mg daily, Ditropan 5 mg twice a day, Paxil 20 mg daily. SOCIAL HISTORY: Positive for tobacco use of approximately 1 pack of cigarettes daily. No reported alcohol use. She lives alone. FAMILY HISTORY: Mother from congestive heart failure at age 55. Patient states her father of old age. REVIEW OF SYSTEMS: Per history of present illness. There has been no reported evidence of active GI bleeding. Patient denies blood in the stool or black stools. Occult stool on 09/24/2019 was negative. PHYSICAL EXAMINATION: Vital Signs: Temperature 97.9 degrees, pulse 96, respirations 18, blood pressure 114/67. General: The patient is awake and alert, in no acute distress. She is alert and oriented. During my review of systems, she did sometimes have difficulty recalling timelines and dates. Other than that, her speech is normal, and she is alert and oriented. Respiratory: Lungs sound essentially clear but some crackles noted in the lower lung toro. Cardiovascular: Irregular rate. Patient is on a Cardizem drip for atrial fibrillation. GI: Abdomen is soft, nontender. Positive bowel sounds. Extremities: Mild lower extremity edema noted bilaterally. Neurological: Cranial nerves 2-12 grossly intact. Patient is awake and alert, oriented to person, place, and time. LABORATORY: Hematology: WBC 12.77, hemoglobin 7.1, hematocrit 24.3, MCV 76.4, platelets 281,000. Coagulation: Prothrombin time 17.0, INR 1.36, PTT 26.7. Chemistry: Sodium 142, potassium 3.6, chloride 100, CO2 of 29, BUN 20, creatinine 1.1, glucose 181, calcium 8.1, phosphorus 2.7, magnesium 1.8. Iron 17, percent saturation 5, TIBC 375, ferritin 17. Total bilirubin 0.53, AST 14, ALT 11, alkaline phosphatase 106. ProBNP 2760. Troponin at 0.051. ASSESSMENT AND PLAN: 1. Anemia. The patient has denied any visible blood in the stool or black stools. Her Hemoccult test was negative. Patient is to receive a unit of packed red blood cells today. 2. Respiratory compromise/respiratory failure. The patient was transferred to the intensive care unit and placed on a BiPAP machine. At the time of my evaluation, the patient was converted over to a Ventimask, in no acute distress. Continue pulmonary management. I believe she has received diuretics. 3. Atrial fibrillation with rapid ventricular response. The patient is currently on a Cardizem drip. Patient has been seen by cardiology. Follow their recommendations. 4. Iron-deficiency anemia. The patient will receive a unit of packed red blood cells. Gastroenterology was asked to see for gastrointestinal evaluation. At this point, due to patient's current respiratory status and atrial fibrillation, would not proceed with endoscopy until she is more stable. Patient is currently on a Cardizem drip and has been on BiPAP, and now on a Ventimask. We will continue to follow, monitor for any signs of active bleeding. Monitor hemoglobin and hematocrit, and transfuse further packed red blood cells as needed. We will proceed with further gastrointestinal workup once patient is stable enough to go through sedation. I have discussed this case with Dr. Horowitz. Further plans to be made as needed. Thank you for this consultation. Dictated by RIDDHI Ashby for Oliver Horowitz MD cc: RIDDHI Dickey MD
--- NOTE | 2019-09-25 15:46 | Diag Imaging Result Doc PS360 ---
EXAM: CHEST-PORTABLE 09/25/2019 HISTORY: PICC placement. TECHNIQUE: AP portable at 1528 COMMENT: There is a PICC line on the right with its tip in the superior vena cava. There is some blunting of the left costophrenic angle. The heart size is slightly enlarged. The possibility of mild interstitial pulmonary edema is suggested. IMPRESSION: Mild pulmonary edema and borderline cardiomegaly. Left pleural effusion. Electronically signed by Goran Mehta 09/25/2019 3:44 PM
[2019-09-25] MEDS: ZOSYN 2.25 GM in NS 50 ML IV SCH ×2 (16:09→20:57)
[2019-09-25] MEDS: LIPITOR PO SCH (20:05)
[2019-09-25] MEDS: ASPIRIN PO SCH (20:05)
[2019-09-26] MEDS: CARDIZEM PO SCH ×5 (03:08→20:06)
[2019-09-26] MEDS: ZYVOX 600 MG/D5W 600 MG/300 ML IVPB IV SCH ×2 (03:11→16:41)
[2019-09-26] MEDS: ZOSYN 2.25 GM in NS 50 ML IV SCH ×4 (03:11→21:00)
[2019-09-26 06:12] LABS: HEMATOCRIT 26.8 % (37.0-47.0); HEMOGLOBIN 7.6 g/dL (12.0-16.0); MCH 22.1 PG (27-31); MCHC 28.4 g/dL (33-37); MCV 77.9 FL (81-99); MPV 10.5 FL (7.4-10.4); RBC 3.44 XMIL (4.2-5.4); RDW 17.4 % (11.5-14.5); WBC 13.28 X1000 (4.8-10.8)
[2019-09-26 06:50] LABS: ALBUMIN 3.1 g/dL (3.5-5.0); CALCIUM 8.8 mg/dL (8.8-10.2); CREATININE 1.1 mg/dL (0.5-0.9); MAGNESIUM 1.5 mg/dL (1.5-2.7); PHOSPHORUS 2.4 mg/dL (2.7-4.5); POTASSIUM 3.6 mmol/L (3.5-5.1)
--- NOTE | 2019-09-26 07:36 | Diag Imaging Result Doc PS360 ---
EXAM: CHEST-PORTABLE INDICATION: dyspnea TECHNIQUE: One view COMPARISON: 09/25/2019 FINDINGS: The right PICC line is in stable position. There has been worsening of pulmonary venous congestion and mild interstitial edema since the previous study. There is now likely a small effusion on the left with adjacent atelectasis and/or infiltrate. No other new consolidation is identified. Cardiac silhouette is stable. IMPRESSION: Interval worsening of pulmonary venous congestion and mild interstitial edema and development of a small left effusion as described. Electronically signed by Stephan Carias 09/26/2019 7:33 AM
[2019-09-26] MEDS ORDERED: LASIX IV ONE (08:19)
[2019-09-26] MEDS ORDERED: MAGNESIUM SULFATE 2 GM/S.W.I. 2 GM/50 ML IVPB IV ONE (08:24)
[2019-09-26] MEDS ORDERED: POTASSIUM PHOSPHATE 40 MEQ in NS 250 ML IV ONE (08:24)
[2019-09-26] MEDS: LOPRESSOR PO SCH ×2 (08:46→20:06)
[2019-09-26] MEDS: VITAMIN D PO SCH (08:47)
[2019-09-26] MEDS: PRILOSEC PO SCH (08:47)
[2019-09-26] MEDS: PLAVIX PO SCH (08:47)
[2019-09-26] MEDS: CYANOCOBALAMIN IM SCH (08:57)
[2019-09-26] MEDS: NICODERM PATCH TD SCH (08:58)
[2019-09-26] MEDS: LASIX IV SCH (08:59)
--- NOTE | 2019-09-26 10:31 | PROGRESS NOTE ---
DATE: 09/26/2019 SUBJECTIVE: This morning, Ms. Garza refers to be doing okay. Her speech is a lot better. Her daughter was at the bedside at the time of the encounter. Ms. Garza did not have any acute event overnight. OBJECTIVE: Vital Signs: Blood pressure is 120/79, pulse of 94, respirations 16, temperature is 98.1 degrees. General: Ms. Garza is a 74-year-old female. She is in bed. No distress. HEENT: Mucosa is pink and moist. Anicteric. Acyanotic. Neck: Supple. Chest: Good air entry bilaterally. There were no crepitations. No rhonchi. Cardiovascular: Irregularly irregular, but rate is controlled. GI: Abdomen is soft, nontender. Bowel sounds present. Extremities: No pedal edema. BOOMSWING OPERATOR: The patient is awake, alert, oriented. Her speech is clear. IMAGING AND LABORATORY DATA: WBC is 13.28, hemoglobin is 7.6, platelet count of 292,000. Chemistry is also reviewed and unremarkable. The patient's ProBNP is down to 1695. The patient's chest x-ray this morning showed interval worsening of pulmonary venous congestion and mild interstitial edema, and development of a small left pleural effusion was described. ASSESSMENT: 1. Acute hypoxemic and hypercarbic respiratory failure, improved. The patient did use bilevel positive airway pressure for some time. She is currently on a nonrebreather. Will continue with Physical Therapy recommendations. 2. Acute pulmonary edema with elevated ProBNP secondary to diastolic heart failure from tachyarrhythmia. The patient is on diuretic therapy. Chest x-ray this morning seems to suggest worsening of the pulmonary edema, so we have gone up on the diuretic this morning. 3. Atrial fibrillation with rapid ventricular response during the hospital course. The patient is currently rate controlled, but still in atrial fibrillation. She is still on a Cardizem drip because of impending surgery. We will transition her to oral medications once she is done with the esophagogastroduodenoscopy. 4. Severe iron-deficiency anemia. The patient has history of multiple gastrointestinal bleeds in the past. She was transfused 1 packed red blood cell yesterday. Hemoglobin is up to 7.6 this morning. She does not seem to have any acute ongoing gastrointestinal bleeding. We will follow up with the esophagogastroduodenoscopy report. 5. B12 deficiency. The patient is getting replacement. 6. Newly-diagnosed diabetes mellitus. Will continue with sliding scale. 7. Left basilar infiltrate, most likely atelectasis. However, underlying pneumonia cannot be excluded, so the patient has been prophylactically started on antibiotics. Will be pending the final report on the blood cultures. 8. Expressive aphasia on presentation with positive MRI indicating an infarction in the right posterior hemisphere. The patient is left-hand dominant. Has been evaluated by Neurology. She is on Plavix, which has been withheld because of impending esophagogastroduodenoscopy, and she is also on Lipitor. In general, I think Ms. Garza is doing well. She is going to have an esophagogastroduodenoscopy this morning. I think once that is done, if she continues to be hemodynamically stable, we will transfer her from the intensive care unit to [facility], and continue with her management. cc: Beni Zuniga MD MTDD
--- NOTE | 2019-09-26 11:48 | PROGRESS NOTE ---
DATE: 09/26/2019 Ms. Garza has had stable neurologic course over the last 24 hours. Workup for her anemia is in progress. Echocardiogram is scheduled. I discussed at length with daughter at the bedside the recent and remote MRI findings and reviewed her risk factors for further cerebrovascular ischemic problems. We discussed risks and benefits with anticoagulation. Depending on her clinical course with anemia and blood loss, she might eventually be a candidate for anticoagulation. No new suggestions from a neurology standpoint today. Thanks for asking us to see Ms. Garza. cc: Papi Irvin III, MD
--- NOTE | 2019-09-26 14:12 | GASTROENTEROLOGY PROGRESS NOTE ---
DATE: 09/26/2019 SUBJECTIVE: The patient was resting comfortably in her bed. Her daughter was present at the bedside. She verbalized that she has been feeling better, has been somnolent though she is hungry, and wanted to start back to her meals. She was scheduled for an EGD today to identify the source of her bleeding, but the patient remains on Ventimask. She was evaluated by Anesthesiology, and it was decided to hold off the sedation and hold off procedure for now until she become stable enough. She has not had any overt signs of bleeding. Her hemoglobin and hematocrit is 7.6 and 26.8 up from 7.1 and 24.3. Her heart rate is 79. OBJECTIVE: Vitals: Pulses 91 per minute, breathing at 16, and blood pressure 112/52. Abdomen is obese, soft, and nontender. Bowel sounds audible. IMPRESSION: Profound anemia, possibly occult GI bleed. She will need upper and lower endoscopy. I would hold off until she is stable enough to be sedated as well as would be able to tolerate the prep for colonoscopy. If possible, I would like to do both at the same time. Most likely, it will be early next week. It seems that it would be early next week unless she has any overt signs of bleeding which may require us to proceed urgently. I have discussed my plans to the patient as well as her daughter, and both of them are in agreement, and would like to avoid any intervention especially prep for colonoscopy at this time. cc: Oliver Horowitz MD
[2019-09-26] MEDS: VENOFER 200 MG in NS 100 ML IV SCH (16:41)
[2019-09-26] MEDS: ASPIRIN PO SCH (20:06)
[2019-09-26] MEDS: LIPITOR PO SCH (20:06)
[2019-09-26] MEDS: LOVENOX SUBQ SCH (20:07)
[2019-09-27] MEDS: CARDIZEM PO SCH ×3 (02:55→20:19)
[2019-09-27] MEDS: ZOSYN 2.25 GM in NS 50 ML IV SCH ×5 (02:56→21:00)
[2019-09-27] MEDS: ZYVOX 600 MG/D5W 600 MG/300 ML IVPB IV SCH (02:56)
[2019-09-27 08:07] LABS: HEMATOCRIT 29.7 % (37.0-47.0); HEMOGLOBIN 8.6 g/dL (12.0-16.0); MCH 23.2 PG (27-31); MCV 80.1 FL (81-99); MPV 10.6 FL (7.4-10.4); RBC 3.71 XMIL (4.2-5.4); RDW 18.5 % (11.5-14.5); WBC 10.33 X1000 (4.8-10.8)
[2019-09-27 08:32] LABS: ALBUMIN 3.2 g/dL (3.5-5.0); CALCIUM 8.7 mg/dL (8.8-10.2); PHOSPHORUS 2.3 mg/dL (2.7-4.5); POTASSIUM 3.4 mmol/L (3.5-5.1)
[2019-09-27] MEDS ORDERED: POTASSIUM PHOSPHATE 60 MEQ in NS 250 ML IV ONE (08:35)
[2019-09-27] MEDS: PRILOSEC PO SCH (09:06)
[2019-09-27] MEDS: PLAVIX PO SCH (09:06)
[2019-09-27] MEDS: VITAMIN D PO SCH (09:06)
[2019-09-27] MEDS: LOPRESSOR PO SCH ×2 (09:06→20:19)
[2019-09-27] MEDS: NICODERM PATCH TD SCH (09:06)
[2019-09-27] MEDS: LASIX IV SCH (09:06)
[2019-09-27] MEDS: NEUTRA-PHOS PO SCH ×4 (09:07→20:19)
--- NOTE | 2019-09-27 09:11 | ECHO REPORT ---
ORDER DATE: 09/26/2019 MEASUREMENTS: Septal thickness 1.4. Left ventricular internal diameter end-diastole 4.1. Left ventricular internal diameter end-systole 2.7. Aortic root 2.8. Left atrium 4.3. SUMMARY: 1. Technically difficult study due to limited acoustic window quality. Intravenous echo contrast agent Optison was utilized to enhance endocardial definition. 2. Very mild sclerosis involving trileaflet aortic valve demonstrated with normal aortic valve opening evident. Mitral and tricuspid valves are without evidence of structural abnormality. There is moderate tricuspid regurgitation. The estimated systolic PA pressure by Doppler is 60 mmHg suggesting moderate pulmonary hypertension. The aortic root is normal in size. 3. Normal left ventricular chamber size with [id number] concentric left ventricular hypertrophy is demonstrated. The estimated left ventricular ejection fraction appears to be at least 60%. No regional wall motion abnormality is evident. Mild left atrial enlargement is demonstrated. Right atrium and right ventricle are normal in size with grossly preserved right ventricular systolic function. 4. Intravenous agitated saline contrast study performed is technically difficult but there is no appreciable evidence of [id number] intracardiac shunting. 5. No pericardial effusion. 6. Inferior vena cava not well demonstrated. cc: MD Jarad Mixon MD
--- NOTE | 2019-09-27 09:41 | Diag Imaging Result Doc PS360 ---
CHEST-PORTABLE - 09/27/2019 INDICATION: dyspnea COMPARISON: 09/26/2019 FINDINGS: Stable right PICC line in good position. Stable significant cardiomegaly and pulmonary vascular congestion. There has been resolution of the volume loss and atelectasis at the left lung base. No new infiltrates. There is some residual mild infiltrate or atelectasis in the left lung base. IMPRESSION: Improvement in the significant atelectasis in the left lung base. No new abnormality. Electronically signed by Alvin Farooq 09/27/2019 9:38 AM
--- NOTE | 2019-09-27 11:40 | PROGRESS NOTE ---
DATE: 09/27/2019 SUBJECTIVE: This morning, Ms. Jeter refers to be doing a whole lot better. She is on nasal cannular at 4 L and she is saturating almost 100%. Her daughter and her [id number] were both at the bedside. OBJECTIVE: Vital signs: Blood pressure of 106/50, pulse of 94, respiration is 19, temperature 97 degrees. Patient is saturating 97%. General: Ms. Garza is a 74-year-old female. She is in bed, no distress. HEENT: Mucosa is pink and moist. Anicteric. Acyanotic. Neck: Supple. Chest: Good air entry bilateral. There are still a few crackles in the posterior lung toro. Cardiovascular: Irregularly irregular but rate controlled. No murmurs, no rubs. Gastrointestinal: Abdomen is soft, nontender. Bowel sounds are present. No hepatosplenomegaly. Extremities: No pedal edema. Distal pulses are present. Central nervous system: Patient is awake, alert, oriented with clear speech. LABORATORY DATA: WBC is 10.33, hemoglobin is up to 8.6, platelet count of 292,000. Chemistry is also reviewed. Creatinine is down to 1.0. Phosphorus is 2.3 with a potassium of 3.6. The patient's pro B is down to 1479. IMAGING: A chest x-ray this morning shows improvement in the significant atelectasis in the left lung base. No new abnormality. There is a stable significant cardiomegaly and pulmonary vascular congestion. CURRENT MEDICATIONS: Have all been reviewed. ASSESSMENT AND PLAN: 1. Acute hypoxemic and hypercarbic respiratory failure, improved. The patient is currently on just nasal cannula. 2. Acute pulmonary edema with elevated pro B due to acute diastolic heart failure from tachyarrhythmia. The patient is on diuretic therapy. Pro B is trending down. The patient's chest x-ray also shows significant improvement. 3. Chronic atrial fibrillation that went into rapid ventricular response during the hospital course. The patient is currently on oral regimen. She did need IV Cardizem for some time. 4. Severe iron deficiency anemia. Occult blood is negative. The patient has a history of multiple gastrointestinal bleeds in the past. She was given 1 PRBC transfusion. Hemoglobin and hematocrit is up to 8.6 today. The patient has also been given IV iron infusions. 5. B12 deficiency. We will continue with oral replacement. 6. Newly diagnosed diabetes mellitus. We will continue with sliding scale. 7. Left bibasilar infiltrate, most likely atelectasis. However, underlying pneumonia could not be completely excluded. Chest x-ray this morning shows remarkable improvement. The patient is on antibiotics. We are going to change to oral. 8. Expressive aphasia on presentation with positive MRI indicating an infarction in the right posterior hemisphere. The patient's speech has significantly improved. She is on Plavix, aspirin and Lipitor. 9. Anticoagulation therapy. Ms Garza has atrial fibrillation, she is hypertensive, has diastolic heart failure and she had stroke. She has a very high likelihood of another stroke if not on anticoagulation. However, because of her remarkably low hemoglobin and the fact that she has had multiple GI bleeds in the past, anticoagulation is a contraindication at least for now as per Cardiology evaluation. Ms Garza will be evaluated GI-rodriguez and then a decision will be made on outpatient basis by GI if they would do anticoagulation or the patient would go for Watchman device. 10. Electrolytes abnormality including hypopotassemia and hypophosphatemia. We would replace this. 11. Chronic kidney disease stage III-A, stable. cc: Beni Zuniga MD
--- NOTE | 2019-09-27 12:37 | PROGRESS NOTE ---
DATE: 09/27/2019 SUBJECTIVE: Ms. Garza has not had any neurologic deterioration. OBJECTIVE: This morning, she is awake, alert, attentive, bright and cheerful. She did a little bit better with tasks requiring multiple steps, right/left distinction, digit distinction today. I did not test her language function more thoroughly today. Speech is not dysarthric. Neck is supple. ASSESSMENT: No new thoughts or new suggestions today from Neurology standpoint. Thanks for allowing us to follow Ms. Garza. cc: Papi Irvin III, MD [facility]
--- NOTE | 2019-09-27 14:42 | GASTROENTEROLOGY PROGRESS NOTE ---
DATE: 09/27/2019 SUBJECTIVE: Patient states she is feeling much better. She has been transitioned over to oxygen by nasal cannula and tolerating well. Per family report she may go home over the weekend. OBJECTIVE: Vital Signs: Temperature 97.0 degrees, pulse 88, respirations 17, blood pressure 95/51. General: Patient is awake, alert, no acute distress. LABORATORY: Hematology: WBC 10.33, hemoglobin 8.6, hematocrit 29.7, MCV 80.1, platelets 292,000. Chemistry: Sodium 145 potassium 3.4, chloride 99, CO2 36, BUN 19, creatinine 1.0, glucose 142, calcium 8.7, phosphorus 2.3, iron 17. ASSESSMENT AND PLAN: 1. Acute respiratory failure has improved. She has now transitioned over to oxygen by nasal cannula. 2. Pulmonary edema. Patient has received diuretics. 3. Chronic atrial fibrillation. Patient was on Cardizem drip and now converted to oral medication. 4. Iron-deficiency anemia. Hemoccult test was negative. Hemoglobin and hematocrit stable today. We had attempted to plan for EGD yesterday but the patient was deemed not stable enough. We will plan to do the procedure as an outpatient unless needed urgently while in the hospital. She will most likely have EGD and colonoscopy scheduled as an outpatient and I have given patient contact information to call the office. 5. Anticoagulation. Patient does receive Plavix for her history of atrial fibrillation. She has history of stroke. There was question on starting anticoagulation but recommended GI evaluation first before proceeding. Again we will plan for EGD and colonoscopy as an outpatient and then depending on the findings, a decision can be made whether to start her on anticoagulation or proceed with possible Watchman device. I have discussed this case with Dr. Horowitz. I have discussed the plan with the patient along with her family members who were at the bedside. I have given them contact information to call and schedule the outpatient procedures. Dictated by RIDDHI Ashby for Oliver Horowitz MD cc: RIDDHI Dickey MD
[2019-09-27] MEDS: XOPENEX NEB INH PRN (15:56)
[2019-09-27] MEDS: ZYVOX PO SCH (16:00)
[2019-09-27] MEDS: LOVENOX SUBQ SCH ×2 (20:18→20:26)
[2019-09-27] MEDS: ASPIRIN PO SCH (20:19)
[2019-09-27] MEDS: LIPITOR PO SCH (20:19)
[2019-09-28] MEDS: ZOSYN 2.25 GM in NS 50 ML IV SCH ×3 (00:43→04:39)
[2019-09-28] MEDS: CARDIZEM PO SCH ×2 (02:17→08:37)
[2019-09-28] MEDS: ZYVOX PO SCH (04:39)
[2019-09-28 06:48] LABS: HEMATOCRIT 30.6 % (37.0-47.0); HEMOGLOBIN 8.7 g/dL (12.0-16.0); MCHC 28.4 g/dL (33-37); MCV 80.7 FL (81-99); MPV 10.3 FL (7.4-10.4); RBC 3.79 XMIL (4.2-5.4); RDW 19.8 % (11.5-14.5); WBC 10.82 X1000 (4.8-10.8)
[2019-09-28 07:01] LABS: AGAP 12; ALBUMIN 3.4 g/dL (3.5-5.0); BUN 14 mg/dL (8-22); CALCIUM 8.6 mg/dL (8.8-10.2); CHLORIDE 97 mmol/L (98-107); COSMO 288; CREATININE 0.9 mg/dL (0.5-0.9); ESTIMATED GFR > 60; GLUCOSE 146 mg/dL (70-104); MAGNESIUM 1.5 mg/dL (1.5-2.7); PHOSPHORUS 3.3 mg/dL (2.7-4.5); POTASSIUM 3.5 mmol/L (3.5-5.1); SODIUM 143 mmol/L (136-145); TCO2 34 mmol/L (25-35)
--- NOTE | 2019-09-28 07:30 | Diag Imaging Result Doc PS360 ---
EXAM: CHEST-PORTABLE - 09/28/2019 HISTORY: dyspnea TECHNIQUE: Portable chest COMPARISON: 09/27/2019 FINDINGS: There is stable mild cardiomegaly. There has been interval decrease in left basilar opacity. The remainder of the lungs appear essentially clear. There is no pleural effusion or pneumothorax identified. PICC remains in place. IMPRESSION: Decrease in left basilar opacity. Electronically signed by Sandro Sal 09/28/2019 7:28 AM
[2019-09-28] MEDS: PLAVIX PO SCH (08:37)
[2019-09-28] MEDS: LOPRESSOR PO SCH (08:37)
[2019-09-28] MEDS: VITAMIN D PO SCH (08:37)
[2019-09-28] MEDS: NEUTRA-PHOS PO SCH (08:37)
[2019-09-28] MEDS: PRILOSEC PO SCH (08:37)
[2019-09-28] MEDS: NICODERM PATCH TD SCH (08:37)
[2019-09-28] MEDS ORDERED: LASIX PO SCH (09:00)
[2019-09-28] MEDS ORDERED: LOPRESSOR PO SCH (13:00)
[2019-09-28] MEDS ORDERED: VITAMIN B-12 PO SCH (13:00)
[2019-09-28 13:02] VITALS: BP 114/55
--- NOTE | 2019-09-28 13:14 | CARDIOLOGY PROGRESS NOTE ---
DATE: 09/28/2019 CHIEF COMPLAINT: Shortness of breath, aphasia. SUBJECTIVE: Mrs. Garza in general seems to be doing better. She was moved for a couple of days to the ICU because of some respiratory distress and hypoxemia. That has improved. Her chest x- ray done today shows decrease in left basilar opacity. She may have aspirated and developed atelectasis. Her ProBNP level continues to improve from admission at 2760 down to 1428. Her electrolytes today are practically normal. She is in good spirits. She had really no pains anywhere. He hemoglobin has slightly increased. OBJECTIVE: Vital signs: Her vital signs today blood pressure is 114/55, temperature 98.4, pulse 83, respirations 18. General: She is awake, alert, oriented, in no distress. HEENT: Unremarkable. Chest: Sounds clear to auscultation and percussion. Heart: Sounds are irregularly irregular. No gallop or murmur. Abdomen: Nontender, soft. No masses. No hepatomegaly. Extremities: Showed no edema. Neurologic exam: Follows commands, moves all 4 extremities. BLOOD WORK: Sodium 143, potassium 3.5, BUN 14, creatinine 0.9. IMPRESSION: 1. Patient with permanent atrial fibrillation. 2. Aphasia. 3. Anemia, iron deficient. 4. Tobacco user. 5. Diastolic heart failure. RECOMMENDATIONS: At this time, we will try to optimize her heart rate control of the atrial fibrillation. We will adjust the medications by mouth and in my opinion she really needs to move on and have her GI tract evaluated by Dr. Horowitz. I will discuss that with Dr. Zuniga, who is sitting next to me, and they will take it from there. cc: Jarad Mejias MD
--- NOTE | 2019-09-28 13:52 | PROGRESS NOTE ---
DATE: 09/28/2019 This morning Ms. Garza referred to be well. Denies any new complaints. Speech was completely clear. She was very happy and excited to hear that she could potentially be discharged today. OBJECTIVE: Vital signs: Blood pressure is 133/45, pulse of 83, respiration is 18, temperature 99.1 degrees. General: Ms. Garza is a 74-year-old elderly female. She is in bed, no distress. Mucosa is pink and moist. Anicteric and acyanotic. Neck: Supple. Chest: Good air entry bilateral. There was no crepitations, no rhonchi. Cardiovascular: Irregularly irregular but rate controlled. No murmurs, no rubs, no gallops. GI: Abdomen soft, nontender. Bowel sounds were present. Extremities: No pedal edema. RN LABOR DELIVERY: Patient was awake, alert, oriented x4. She did have very clear speech and I could not elicit any motor weakness. LABORATORY DATA: This morning her hemoglobin is up to 8.7. Chemistry is also reviewed, completely within normal range. Pro B is 1428, trending down. A chest x-ray this morning showed decrease in the left basilar opacity. Remainder of the lungs appear essentially clear. No pleural effusions. No pneumothorax. ASSESSMENT: 1. Acute hypoxemic respiratory failure. We think it is a combination of pulmonary edema, atelectasis, and possible superimposed pneumonia. The patient has transitioned down to nasal cannula. This morning she was evaluated for home O2 and I think her oxygen level dropped to about 88, which will make her qualify. 2. Acute hypercarbic respiratory failure, most likely due to COPD, resolved. 3. Acute pulmonary edema with elevated pro B due to diastolic heart failure from tachyarrhythmia. This is improved. 4. Chronic atrial fibrillation which went to into atrial fibrillation RVR during the hospital course. The patient's heart rate is now better controlled. She is on Cardizem and beta deniz. 5. Severe iron deficiency anemia. Patient is status post 1 PRBC transfusion and 3 infusions of iron. She feels a whole lot better. Hemoglobin today is 8.7, and she does not have any ongoing GI losses. Her fecal occult blood test during the hospital course was negative. 6. B12 deficiency. Patient is on replacement. 7. Newly diagnosed diabetes. Patient's A1c was 6.5. We have advised her for now to be on adequate diet and re-evaluate this with her primary care doctor before pharmacological therapy. 8. Left bibasilar infiltrate most likely atelectasis, however a superimposed pneumonia is very likely. The patient was on antimicrobial therapy. A chest x-ray this morning has shown improvement. 9. Right parietal lacunar infarct with expressive aphasia. The patient's speech has significantly improved. 10. Dyslipidemia, improved. The patient is on a statin drug. In general, I think Ms. Garza is remarkably stable. She is currently in the O2 sat 83%. She qualifies for home oxygen. She has COPD and she also has diastolic heart failure. I think her iron has been replaced with infusion and the blood transfusion. There have been discussions about her anticoagulation because of her elevated [id number] score. Cardiology wants a GI evaluation before any anticoagulation decision is made versus Watchman device. The patient has been evaluated by GI and per the documentation, they prefer to do the EGD/colonoscopy on outpatient since Ms. Garza is not showing active signs of GI bleed. Ms. Garza will be discharged today once home health has been arranged and also oxygen has been arranged. Ms. Garza was evaluated during the hospital course by Physical Therapy on the . At the time, she was able to walk 100 feet without any assistance and without any device, she tells me today, that she has been using the bathroom all by herself and she has been walking around. cc: Beni Zuniga MD MTDD
--- NOTE | 2019-09-29 18:50 | DISCHARGE SUMMARY ---
ADMISSION DATE: 09/23/2019 DISCHARGE DATE: 09/28/2019 DISPOSITION: Home with home health. FOLLOW-UP: 1. Dr. Stauffer. 2. Dr. Irvin. 3. Dr. Horowitz. 4. Dr. Mejias. CONSULTATION DURING THIS ADMISSION: 1. Neurology was consulted. The patient was seen by Dr. Irvin. 2. GI was consulted. The patient was seen by Dr. Horowitz. 3. Cardiology was consulted. The patient was seen by Dr. Mejias. INVESTIGATIVE PROCEDURE DURING THIS ADMISSION: None. IMAGING STUDIES OF SIGNIFICANCE: 1. A CT scan of the head was done on 09/23/2019, which showed chronic appearing changes. No definite acute pathology. 2. A chest x-ray done on 09/23/2019 showed no evidence of acute disease. 3. An MRI done on 09/24/2019 shows encephalomalacia on the right, probably due to previous infarct or other insult. There is also a new restricted diffusion in the posterior right hemisphere probably related to acute or subacute infarction. 4. Multiple chest x-rays were done subsequently. ADMISSION DIAGNOSES: 1. Transient ischemic attack versus cerebrovascular accident. 2. Acute kidney injury. 3. Microcytic anemia. 4. Atrial fibrillation. DIAGNOSES AT THE TIME OF DISCHARGE: 1. Right parietal lacunar infarct resulting in an expressive aphasia. 2. Acute hypoxemic respiratory failure during the hospital course due to pulmonary edema, atelectasis and superimposed pneumonia. 3. Acute hypercarbic respiratory failure, most likely due to chronic obstructive pulmonary disease. 4. Acute pulmonary edema with elevated pro B secondary to diastolic heart failure from tachyarrhythmia. 5. Chronic atrial fibrillation which went into rapid ventricular response during the hospital course. 6. Severe iron deficiency anemia. Patient was given 1 packed red blood cells and 3 infusions of iron. 7. B12 deficiency. Patient will continue with oral replacement. 8. Newly diagnosed diabetes mellitus. The patient has been advised on diet. 9. Left bibasilar infiltrate most likely due to atelectasis with superimposed pneumonia. This was improved. Subsequent chest x-ray showed improvement. 10. Dyslipidemia. DISCHARGE MEDICATIONS: 1. Cholecalciferol. 2. Clopidogrel 75 mg p.o. daily. 3. Lisinopril 5 mg p.o. daily. 4. Oxybutynin 5 mg b.i.d. 5. Paroxetine 20 mg p.o. daily. 6. Carvedilol 6.25 b.i.d. 7. Omeprazole 20 mg p.o. daily. 8. Atorvastatin 40 mg p.o. daily. 9. Metoprolol 25 mg p.o. q.12. 10. Aspirin 81 mg p.o. daily. 11. Augmentin 1 tab b.i.d. 12. Diltiazem 120 p.o. daily. 13. Iron sulfate 325 b.i.d. 14. Betzaida-Colace 1 tab b.i.d. 15. Furosemide 20 mg p.o. daily. 16. Cyanocobalamin 1000 mcg p.o. daily. 17. Nicotine patch. PRESENTING COMPLAINT: Confusion. HISTORY OF PRESENTING COMPLAINT: Ms. Garza is a 74-year-old female with a history of hypertension, previous stroke, atrial fibrillation who came to the emergency department because of acute onset of slurred speech and some weakness on the left side. Upon presenting, she was evaluated. Initial CT scan was unremarkable. She was admitted to the medical floor for further evaluation. HOSPITAL COURSE: Ms. Garza was initially admitted to [facility], where she was under neuro checks. Her heart rate somehow was persistently high even on the oral AV nodes blockades. This was, however, uptitrated. Unfortunately, during the hospital course Ms. Garza developed an acute onset of shortness of breath, pulmonary edema with atrial fibrillation RVR. She was transferred from the [facility] to the ICU. She did remain fairly stable. Her blood count was slightly low so she was transfused. She was also found to be remarkably iron deficient and was iron replaced. B12 was also replaced. During the hospital course, Ms. Garza was evaluated by Neurology for the acute stroke. She did significantly improve in terms of her speech. By the time she got discharged, she was talking very clearly and she did not have any neurological deficit. Ms. Garza was also seen by Cardiology as well as GI. At the time of the discharge, Ms. Garza was walking without any aid as per physical therapy evaluation. She did, however, qualify for home O2, so she was provided with. During the hospital course there was some discussion about Ms. Garza's anticoagulation. She has a very high CHADS-Vasc score and in the face that she just had stroke, it is reasonable for her to be on anticoagulation. However, because she has been so severe iron deficient anemia, there is a concern that she could have any disease process in the GI tract that could be a potential bleed if she goes on blood thinners. Ms. Garza has had multiple episodes of GI bleeds in the past. Cardiology did recommend to have the GI tract evaluated and probably also consider a Watchman device. Ms. Garza's H H remained actually fairly stable throughout the hospital course and occult blood testing on the stool was negative. GI evaluated her on multiple occasions. They recommended that they would evaluate the GI track on outpatient basis, since Ms. Garza was not actively bleeding. On the day of the discharge Ms. Garza was clinically stable. Please refer to the details of my progress note. Ms Garza was therefore discharged in stable condition. All the discharge instructions have been discussed with her. We have stressed the utmost need for her to stay away from tobacco use. We have also advised that her A1c is 6.5 and that she would need to follow up with her primary care doctor and be on some form of diabetic diet at least for now and if that does not control it, then pharmacological therapy will need to be initiated. All the discharge instructions were discussed with her and she voiced understanding. TIME SPENT FOR DISCHARGE: Was 40 minutes. cc: Beni Zuniga MD
--- NOTE | 2019-10-03 18:36 | Carotid Study ---
DATE: 09/24/2019 STUDY: Bilateral duplex and color flow imaging of the carotid arteries, performed using the [employer] Vivid E9 ultrasound system with a 9L-D transducer. REFERRING PROVIDER: Not recorded. CHAIR FINISHER: Jackie Magana RVT INDICATION: Stroke. FINDINGS: The velocity cm/sec in both carotid systems were reviewed. The right ICA/CCA ratio is 1.69, corresponding to a percent stenosis of 0% to 39%. The left ICA/CCA ratio is 1.12, corresponding to a percent stenosis of 0% to 39%. INTERPRETATION: Despite the patient's stroke, there appears to be only mild atherosclerotic disease involving either carotid system, without evidence of a hemodynamically significant lesion. cc: MD Rohan Paz CRNP
== END 2019-09-28 13:46 | disposition home health service (06) | DRG 64 ==
LOC: SUPCPDRO → ED 17:22 → 2N 22:19 → ICU 09-24 22:32 → 2N 09-27 12:53
PROVIDERS: ATTEND Internal Medicine

== ENCOUNTER 2019-11-09 15:22 | Inpatient (IN) ==
[2019-11-09 16:27] LABS: BASO# 0.01 X1000 (0.0-0.2); BASO% 0.1 % (0.0-0.8); EOS# 0.12 X1000 (0.0-0.7); EOS% 1.2 % (0.0-10.0); HEMATOCRIT 41.2 % (37.0-47.0); HEMOGLOBIN 12.8 g/dL (12.0-16.0); IMM GRAN# 0.03 X1000 (0.0-0.04); IMM GRAN% 0.3 % (0.0-0.5); LYMPH# 0.89 X1000 (1.2-3.4); LYMPH% 8.6 % (20.5-51.1); MCH 26.9 PG (27-31); MCHC 31.1 g/dL (33-37); MCV 86.6 FL (81-99); MONO# 0.35 X1000 (0.11-0.59); MONO% 3.4 % (1.7-9.3); NEUT# 8.89 X1000 (1.4-6.5); NEUT% 86.4 % (42.2-75.2); PLT 335 X1000 (130-400); RBC 4.76 XMIL (4.2-5.4); RDW 20.3 % (11.5-14.5); WBC 10.29 X1000 (4.8-10.8)
[2019-11-09 16:34] LABS: URINE SOURCE CATH
[2019-11-09 16:39] LABS: BILIRUBIN URINE NEGATIVE (NEGATIVE); BLOOD URINE MODERATE (NEGATIVE); COLOR YELLOW; GLUCOSE URINE NEGATIVE (NEGATIVE); KETONE URINE NEGATIVE (NEGATIVE); LEUKOCYTES URINE NEGATIVE (NEGATIVE); NITRITE URINE NEGATIVE (NEGATIVE); PH URINE 6.5; PROTEIN URINE 100 mg/dL (NEGATIVE); SP GRAVITY URINE 1.021; TURBIDITY URINE CLEAR (CLEAR); UROBILINOGEN URINE NORMAL (NORMAL)
[2019-11-09 16:40] LABS: UR EPITHELIAL CELLS <10 /HPF (<10); URINE BACTERIA NEGATIVE /HPF; URINE RBC 20-40 /HPF (<10); URINE WBC <10 /HPF (<10)
[2019-11-09 16:43] LABS: AGAP 15; ALB/GLOB RATIO 1.8; ALBUMIN 4.4 g/dL (3.5-5.0); ALKALINE PHOSPHATASE 109 U/L (32-104); BUN 10 mg/dL (8-22); CALCIUM 10.3 mg/dL (8.8-10.2); CHLORIDE 100 mmol/L (98-107); COSMO 281; CREATININE 0.9 mg/dL (0.5-0.9); ESTIMATED GFR > 60; GLUCOSE 146 mg/dL (70-104); GOT 20 U/L (10-30); GPT 14 U/L (10-36); POTASSIUM 4.2 mmol/L (3.5-5.1); SODIUM 140 mmol/L (136-145); TCO2 25 mmol/L (25-35); TOTAL BILIRUBIN 0.62 mg/dL (0.20-1.00); TOTAL PROTEIN 6.8 g/dL (6.3-8.3)
[2019-11-09 16:46] LABS: UR AMPHETAMINES QUAL NONE DETECTED (NONE DETECT); UR BARBITUATES QUAL NONE DETECTED (NONE DETECT); UR BENZODIAZEPIN QUAL NONE DETECTED (NONE DETECT); UR CANNABINOIDS QUAL NONE DETECTED (NONE DETECT); UR COCAINE QUAL NONE DETECTED (NONE DETECT); UR METHADONE QUAL NONE DETECTED (NONE DETECT); UR OPIATES QUAL NONE DETECTED (NONE DETECT); UR OXYCODONE QUAL NONE DETECTED (NONE DETECT); UR PCP QUAL NONE DETECTED (NONE DETECT)
[2019-11-09 17:06] LABS: INR 1.11; PROTIME 14.5 Seconds (11.0-16.0)
[2019-11-09 17:07] LABS: PTT 25.1 Seconds (22.3-41.8)
[2019-11-10 06:42] LABS: BASO# 0.01 X1000 (0.0-0.2); BASO% 0.1 % (0.0-0.8); EOS# 0.07 X1000 (0.0-0.7); EOS% 0.9 % (0.0-10.0); HEMATOCRIT 35.5 % (37.0-47.0); HEMOGLOBIN 10.6 g/dL (12.0-16.0); LYMPH# 2.08 X1000 (1.2-3.4); LYMPH% 25.7 % (20.5-51.1); MCH 26.4 PG (27-31); MCHC 29.9 g/dL (33-37); MCV 88.5 FL (81-99); MONO# 0.42 X1000 (0.11-0.59); MONO% 5.2 % (1.7-9.3); MPV 9.7 FL (7.4-10.4); NEUT# 5.51 X1000 (1.4-6.5); NEUT% 68.1 % (42.2-75.2); PLT 277 X1000 (130-400); RBC 4.01 XMIL (4.2-5.4); RDW 20.6 % (11.5-14.5); WBC 8.09 X1000 (4.8-10.8)
[2019-11-10 07:05] LABS: AGAP 11; ALB/GLOB RATIO 1.3; ALBUMIN 3.1 g/dL (3.5-5.0); ALKALINE PHOSPHATASE 78 U/L (32-104); BUN 11 mg/dL (8-22); CALCIUM 9.5 mg/dL (8.8-10.2); CHLORIDE 104 mmol/L (98-107); COSMO 281; CREATININE 0.8 mg/dL (0.5-0.9); ESTIMATED GFR > 60; GLUCOSE 136 mg/dL (70-104); GOT 14 U/L (10-30); GPT 9 U/L (10-36); MAGNESIUM 1.5 mg/dL (1.5-2.7); POTASSIUM 3.7 mmol/L (3.5-5.1); SODIUM 140 mmol/L (136-145); TCO2 25 mmol/L (25-35); TOTAL BILIRUBIN 0.52 mg/dL (0.20-1.00); TOTAL PROTEIN 5.5 g/dL (6.3-8.3)
[2019-11-11 05:19] LABS: HEMATOCRIT 34.8 % (37.0-47.0); HEMOGLOBIN 10.9 g/dL (12.0-16.0); MCH 27.6 PG (27-31); MCHC 31.3 g/dL (33-37); MCV 88.1 FL (81-99); MPV 9.5 FL (7.4-10.4); RBC 3.95 XMIL (4.2-5.4); RDW 20.2 % (11.5-14.5); WBC 9.11 X1000 (4.8-10.8)
[2019-11-12 06:12] LABS: HEMATOCRIT 34.3 % (37.0-47.0); HEMOGLOBIN 10.7 g/dL (12.0-16.0); MCH 27.4 PG (27-31); MCHC 31.2 g/dL (33-37); MCV 87.9 FL (81-99); MPV 9.3 FL (7.4-10.4); RBC 3.9 XMIL (4.2-5.4); RDW 19.5 % (11.5-14.5); WBC 7.73 X1000 (4.8-10.8)
[2019-11-12 06:36] LABS: AGAP 10; ALBUMIN 3.1 g/dL (3.5-5.0); BUN 6 mg/dL (8-22); CALCIUM 9.1 mg/dL (8.8-10.2); CHLORIDE 101 mmol/L (98-107); COSMO 278; CREATININE 0.7 mg/dL (0.5-0.9); ESTIMATED GFR > 60; GLUCOSE 141 mg/dL (70-104); POTASSIUM 3.4 mmol/L (3.5-5.1); SODIUM 139 mmol/L (136-145); TCO2 28 mmol/L (25-35)
[2019-11-13 11:26] VITALS: BP 146/79
== END 2019-11-13 15:20 | DRG 65 ==
LOC: SUPCPDRO → ED 15:22 → SUATTDRO 19:00 → 2N 19:00
PROVIDERS: ATTEND Emergency Medicine